=== PATIENT | male | born 1975 | race Caucasian/White ===

== ENCOUNTER 2019-02-02 14:12 | Emergency (ER) | payer MEDICAID, OTHER | END 2019-02-02 14:45 | disposition home or self-care (01) | LOC: BURERS 14:12 | DX: J02.9 Acute pharyngitis, unspecified (principal); R09.02 Hypoxemia; J06.9 Acute upper respiratory infection, unspecified; Q25.5 Atresia of pulmonary artery; M10.9 Gout, unspecified; Z79.899 Other long term (current) drug therapy; Z79.82 Long term (current) use of aspirin | CPT/HCPCS: 99283 ==

== ENCOUNTER 2019-05-04 13:44 | Outpatient (CLI) | payer OTHER ==
--- NOTE | 2019-05-04 16:38 | RAD ---
CHEST: 05/04/2019 FINDINGS: The heart seems slightly larger today than the October 2012 film, but there is no overt congestive c hange. The lung markings in the right lung, particularly the right lower lobe, seem a little more pr ominent than previously. This can be seen in cases of bronchitis and in cases of chronic infection. CT would be a better assessment of this particular patient's lungs. No gross lobar consolidation is seen. IMPRESSION: 1. Mild interval increase in heart size. 2. Some increased prominence in right basilar markings. Bronchitis or chronic infection are possibl e. As significant disease could easily hide in this patient's chest, if he does not respond adequate ly to treatment, then consideration of a CT scan to look at finer detail may be pertinent. POS: HOME
== END 2019-05-04 13:45 | disposition home or self-care (01) ==
LOC: BURRAD 13:44
PROVIDERS: ATTEND Physician Assistant
DX: J40 Bronchitis, not specified as acute or chronic (principal)
CPT/HCPCS: 71046

== ENCOUNTER 2020-06-23 14:43 | Outpatient (CLI) | payer OTHER ==
--- NOTE | 2020-06-23 20:09 | RAD ---
CHEST TWO VIEWS: 06/23/20 Comparison is made with the prior study dated 05/04/19. The appearance of the chest is quite similar with little interval change. Mild cardiomegaly is about the same. There is probably some left apical pleural thickening, but this area does not appear any di fferent now than before. I would note that it would be easy to hide pathology in this location on the se plain radiographs. The left lung is clear. The right lung has some minor prominence of the upper l obe vessels compared to the lower, though it really does not appear any different than it was previou sly. No lobar consolidation was seen. There is a suggestion of scarring involving the right hemidiaph ragm and adjacent lower lobe. This was present before. In general, the lungs are mildly hyperexpanded . IMPRESSION: Cardiomegaly and chronic changes but no definite acute findings. POS: HOME
== END 2020-06-23 14:44 | disposition home or self-care (01) ==
LOC: BURRAD 14:43
PROVIDERS: ATTEND Physician Assistant
DX: R50.81 Fever presenting with conditions classified elsewhere (principal); R05 Cough; I51.7 Cardiomegaly
CPT/HCPCS: 71046

== ENCOUNTER 2022-03-18 09:17 | Emergency (ER) | payer OTHER ==
[2022-03-18] MEDS ORDERED: Boostrix 0.5 ML (Tdap) VIAL ONE (10:05)
== END 2022-03-18 10:18 | disposition home or self-care (01) ==
LOC: BURERS 09:17
DX: S81.801A Unspecified open wound, right lower leg, initial encounter (principal); R09.02 Hypoxemia; I50.22 Chronic systolic (congestive) heart failure; Z79.01 Long term (current) use of anticoagulants; Z79.82 Long term (current) use of aspirin; W26.8XXA Contact with other sharp object(s), not elsewhere classified, initial encounter; Y93.55 Activity, bike riding
CPT/HCPCS: 90471; 90715

== ENCOUNTER 2024-05-05 22:00 | Emergency (ER) | payer OTHER ==
[2024-05-05] MEDS ORDERED: NEOMYCIN-POLYMYXIN-HC EAR SUSP 200 DROP/10 ML BOT ONE (22:16)
== END 2024-05-05 22:23 | disposition home or self-care (01) ==
LOC: BURERS 22:00
DX: T16.2XXA Foreign body in left ear, initial encounter (principal); I11.0 Hypertensive heart disease with heart failure; I50.9 Heart failure, unspecified
CPT/HCPCS: 99282

== ENCOUNTER 2024-09-07 18:46 | Emergency (ER) | payer OTHER ==
[~2024-09-07 18:46] MED LIST: Iopamidol 370 76% 100 ML VIAL ONE
[2024-09-07 19:34] LABS: #Basophils 0.1 thou/uL (0.0-0.2); #Lymphocytes 2.6 thou/uL (1.20-3.40); #Monocytes 0.7 thou/uL (0.11-0.59); #Neutrophils 5.9 thou/uL (1.40-6.50); %Basophils 1.5 % (0.0-1.0); %Eosinophils 0.2 % (0.0-10.0); %Lymphocytes 28.1 % (21.0-51.0); %Neutrophils 63.3 % (42.0-75.0); Hematocrit 57.9 % (42.0-52.0); Hemoglobin 16.7 g/dL (14.0-18.0); Mean Corpuscular HGB CONC 28.9 g/dL (32.0-36.0); Mean Corpuscular Hemoglobin 22.3 pg (27.0-31.0); Mean Corpuscular Volume 77.4 fl (78.0-98.0); Mean Platelet Volume 6.6 fL (7.4-10.4); Platelet Count 312 10x3/uL (130-400); RBC Distribution Width 16.1 % (11.5-14.5); Red Blood Cell (RBC) Count Greater than 7.09 mill/uL (4.70-6.10); White Blood Cell (WBC) Count 9.3 10x3/uL (4.8-10.8)
[2024-09-07 19:36] LABS: MDiff Complete? YES
[2024-09-07 19:49] LABS: ALT (SGPT) 35 U/L (8-55); AST (SGOT) 50 U/L (5-34); Albumin 3.5 g/dL (3.5-5.0); Alkaline Phosphatase 114 U/L (40-110); Anion Gap 14 mmol/L (10-20); BUN (Urea Nitrogen) 28 mg/dL (8.9-20.6); Bilirubin, Total 0.9 mg/dL (0.2-1.2); Calc. Creatinine Clearance 0 mL/min (70-130); Calcium 8.7 mg/dL (7.8-10.44); Carbon Dioxide 25 mmol/L (22-29); Chloride 105 mmol/L (98-107); Estimated GFR 41; Globulin 3.9 g/dL (2.4-3.5); Glucose 94 mg/dL (70-105); Potassium 3.9 mmol/L (3.5-5.1); Protein, Total 7.4 g/dL (6.0-8.3); Sodium 140 mmol/L (136-145); Troponin I 0.038 ng/mL (< 0.028)
[2024-09-07 22:50] LABS: Troponin I 0.044 ng/mL (< 0.028)
== END 2024-09-07 23:42 | disposition left against medical advice (07) ==
LOC: BURERS 18:46
DX: I71.21 Aneurysm of the ascending aorta, without rupture (principal); R79.89 Other specified abnormal findings of blood chemistry; I50.9 Heart failure, unspecified; Z79.82 Long term (current) use of aspirin; Z79.01 Long term (current) use of anticoagulants; Z79.899 Other long term (current) drug therapy
CPT/HCPCS: 36415; 71045; 71260; 80053; 83880; 84484; 85025; 93005; Q9967